=== PATIENT | female | born 1950 | race Hispanic/Latino ===

== ENCOUNTER → 2021-07-22 | Day surgery (SDC) | payer MEDICARE ==
[2021-07-21 11:08] LABS: BASOPHILS % 0.7 % (0.0-1.0); EOSINOPHILS # (AUTO) 0.3 (0.0-0.4); EOSINOPHILS % 4.9 % (0.0-6.0); HEMATOCRIT 39.3 % (34.2-44.1); HEMOGLOBIN 12.7 g/dL (12.0-16.0); LYMPHOCYTES # (AUTO) 1.8 (1.0-3.2); LYMPHOCYTES % 30.8 % (18.0-39.1); MEAN CORPUSCULAR HGB CONC 32.3 g/dL (31-35); MEAN CORPUSCULAR VOLUME 92.7 fL (81-99); MONOCYTES # (AUTO) 0.7 (0.2-0.8); MONOCYTES % 12.1 % (4.4-11.3); NEUTROPHILS % 51.2 % (38.7-80.0); PLATELET COUNT 202 x10e3/uL (140-360); RED BLOOD COUNT 4.24 x10e6/uL (3.6-5.1); RED CELL DISTRIBUTION WIDTH 14.8 % (11.7-14.4)
[2021-07-21 11:26] LABS: ANION GAP 11.2 mmol/L (8-16); CALCIUM 8.7 mg/dL (8.4-10.2); CREATININE, SERUM 1.09 mg/dL (0.57-1.11); POTASSIUM 4.2 mmol/L (3.5-5.1)
[~2021-07-22] MED LIST: ALBUTEROL0.63 MG/3 NEB; ASPIR 8181 MG PO; ATORVASTATIN CA10 MG PO; ATROPINE SULFATE 1 MG/ML VIAL ONE; ATROVENT HFA12.9 GM INH; B&O 60MG R/S 60 MG SUPP PR ONE; BENICAR20 MG PO; BYSTOLIC5 MG PO; CEFTRIAXONE 1 GM VIAL ONE; CLONIDINE HCL0.1 MG PO; COMBIGAN EYE DRO5 ML; DEXAMETHASONE SOD PHOS INJ 4 MG/ML SDV ONE; DOXAZOSIN MESYLA1 MG PO; EPHEDRINE SULFATE INJ 50 MG/ML VIAL ONE; FAMOTIDINE20 MG PO; FENTANYL CITRATE/PF 100MCG/2 ML INJ ONE; IOPAMIDOL 610MG/1ML 300 MG/ML VIAL IV ONE; KETOROLAC TROMETHAMINE 30 MG/ML VIAL ONE; LEVOTHYROXINE50 MCG PO; LIDOCAINE HCL 2% LOCAL INJ 5 ML SDV VIAL INJ ONE; LOSARTAN POTAS100 MG PO; LUMIGAN2.5 M1 OP; MELOXICAM7.5 MG PO; MIDAZOLAM HCL 2 MG/2 ML VIAL ONE; MONTELUKAST SOD10 MG PO; MYRBETRIQ25 MG PO; ONDANSETRON HCL INJ 2MG/ML 2ML 2 MG/ML VIAL ONE; PANTOPRAZOLE SO40 MG PO; POVIDONE IODINE 0.05% 0.05 % ML PO ONE; PROPOFOL IV EMULSION 10 MG/ML 20 ML VIAL ONE; SERTRALINE HCL50 MG PO; SEVOFLURANE INHAL SOLN 250 ML PEN BTL ONE; SYMBICORT 16010.2 GM INH
[2021-07-22 11:05] VITALS: BP 144/79
== END | disposition home or self-care (01) ==
LOC: OR 07:14
PROVIDERS: ATTEND Urology
DX: N30.10 Interstitial cystitis (chronic) without hematuria (principal); N81.10 Cystocele, unspecified; N81.6 Rectocele; N36.41 Hypermobility of urethra; N95.2 Postmenopausal atrophic vaginitis; N32.89 Other specified disorders of bladder; N13.8 Other obstructive and reflux uropathy; N32.81 Overactive bladder; N39.46 Mixed incontinence; N81.89 Other female genital prolapse; R80.9 Proteinuria, unspecified; E03.9 Hypothyroidism, unspecified; K21.9 Gastro-esophageal reflux disease without esophagitis; J45.909 Unspecified asthma, uncomplicated; I10 Essential (primary) hypertension; E78.5 Hyperlipidemia, unspecified; Z88.6 Allergy status to analgesic agent; Z01.810 Encounter for preprocedural cardiovascular examination; Z01.812 Encounter for preprocedural laboratory examination; Z01.818 Encounter for other preprocedural examination; Z20.822 Contact with and (suspected) exposure to COVID-19; Z79.899 Other long term (current) drug therapy; Z68.30 Body mass index [BMI] 30.0-30.9, adult
CPT/HCPCS: 36415; 52260; 71046; 74420; 80048; 85025; 93005; C1758; C1769; J0461; J0696; J1100; J1885; J2001; J2250; J2405; J2704; J3010; Q9967; U0002